=== PATIENT | male | born 1965 | race African-American/Black ===

== ENCOUNTER 2020-10-11 08:03 | Emergency (ER) | payer SELFPAY ==
[~2020-10-11] VITALS: Ht 175.3 cm; Wt 110.0 kg
[~2020-10-11 08:03] MED LIST: INSU100I17 SQ; Insulin Detemir SQ; Lisinopril PO
--- NOTE | 2020-10-11 09:06 | RAD ---
EXAM: AP View of the chest DATE: 10/11/2020 8:57 AM INDICATION: Reason: chest pain, right arm pain / Spl. Instructions: / History: COMPARISON: No Prior FINDINGS: The heart is not enlarged. Mediastinal and hilar contours are normal. Mild Patchy opacities right lung base likely atelectasis. No pleural effusion or pneumothorax. IMPRESSION: Mild Patchy opacities right lung base likely atelectasis. Electronically signed by: Atul Mayfield MD (10/11/2020 9:04 AM) [id number]
[2020-10-11 09:44] LABS: BASO # 0.1 x10^3/uL (0.0-0.2); BASO % 1 % (0-3); EOS # 0.3 x10^3/uL (0.0-0.7); EOS % 5 % (0-3); HEMATOCRIT 37.9 % (39.0-53.0); HEMOGLOBIN 12.5 g/dL (13.0-17.5); LYMPH # 2.2 x10^3/uL (1.0-4.8); LYMPH % 38 % (24-48); MEAN CORPUSCULAR HEMOGLOBIN 26 pg (25-35); MEAN CORPUSCULAR HGB CONC 33 g/dL (31-37); MEAN CORPUSCULAR VOLUME 78 fL (79-100); MONO # 0.5 x10^3/uL (0.0-1.1); MONO % 9 % (0-9); NEUT # 2.8 x10^3/uL (1.8-7.7); NEUT % 48 % (31-73); PLATELET COUNT 215 x10^3/uL (140-400); RED BLOOD COUNT 4.89 x10^6/uL (4.30-5.70); WHITE BLOOD COUNT 5.8 x10^3/uL (4.0-11.0)
[2020-10-11] MEDS ORDERED: KETOROLAC 30 MG/ML VIAL. IVP ONE (09:45)
[2020-10-11] MEDS ORDERED: CONTRAST GIVEN. MC PRN (09:45)
[2020-10-11] MEDS ORDERED: IOHEXOL 350 MG/ML 100 ML VIAL. IV ONE (09:45)
[2020-10-11 09:49] LABS: CALCIUM 8.9 mg/dL (8.5-10.1); CREATININE 1.4 mg/dL (0.7-1.3); GFR 64.4; POTASSIUM 5.1 mmol/L (3.5-5.1)
[2020-10-11 09:56] LABS: ALBUMIN 4.1 g/dL (3.4-5.0); ALBUMIN/GLOBULIN RATIO 1.2 (1.0-1.7); TOTAL BILIRUBIN 0.2 mg/dL (0.2-1.0); TOTAL PROTEIN 7.6 g/dL (6.4-8.2)
--- NOTE | 2020-10-11 10:23 | RAD ---
EXAM: CT angiography of the chest with intravenous contrast. HISTORY: Shortness of breath. Chest pain. TECHNIQUE: Computed tomographic images of the chest were obtained following the administration of int ravenous contrast according to angiography protocol. Multiplanar reformatting was performed and three dimensional maximum intensity projection images were obtained. *One or more of the following individualized dose reduction techniques were utilized for this examina tion: 1. Automated exposure control. 2. Adjustment of the mA and/or kV according to patient size. 3. Use of iterative reconstruction technique. COMPARISON: Abdomen and pelvis CT dated 03/31/2012. FINDINGS: There is no evidence of pulmonary embolism. The heart is upper normal in size. The aorta is normal in caliber. There is a common origin of the innominate and left common carotid artery, a norm al aortic arch branching variant. No pathologically enlarged lymph node is seen. There are calcified mediastinal and hilar granulomas. There is no pneumothorax or pleural effusion. There are few calcifi ed granulomas within both lungs. There is a cluster of nodules within the superior lateral left lower lobe measuring up to 7 mm. There is calcification associated with several these nodules. There is no acute finding involving the visualized upper abdomen. There is a 1.4 cm benign cyst within the later al mid zone of the left kidney, stable compared to a study performed 03/31/2012. Follow-up isn't routi maximiliano performed for simple cysts. There are splenic granulomas. There is no suspicious osseous lesion. There is no acute osseous finding. IMPRESSION: 1. No evidence of pulmonary embolism. 2. Cluster of partially calcified nodules within the lateral left lower lobe, likely postinfectious i n etiology. There are additional calcified pulmonary, mediastinal and hilar granulomas. Follow-up can be performed in one year to confirm stability of a few tiny nodules which are not clearly calcified. Electronically signed by: Aleah Cantu MD (10/11/2020 10:21 AM) [id number]
[2020-10-11] MEDS ORDERED: METH-561 PO (10:46)
--- NOTE | 2020-10-11 10:48 | ED.ADGEN ---
Past Medical History Past Medical History: Diabetes-Type II, Hypertension Past Surgical History: No Surgical History Smoking Status: Never Smoker Alcohol Use: None Drug Use: None General Adult EDM: Chief Complaint: CHEST PAIN HPI: HPI: Patient is a 52-year-old male who presents to the emergency room complaining of right-sided chest pain that radiates into his right arm and sometimes the left arm for the last several months. He states he has the pain all the time. He does not get better or worse. He has tried to take ibuprofen at home without any relief. He states he intermittently gets some coughing and feels like his chest is tight. He states that onset he does not believe he was ill. He has never had anything like this previously. Review of Systems: Review of Systems: Complete ROS is negative unless otherwise documented in HPI Current Medications: Current Medications Medications (Trade) Dose Ordered Sig/Erika Start Time Stop Time Status Last Admin Dose Admin Info (CONTRAST GIVEN -- Rx MONITORING) 1 each PRN DAILY PRN 10/11/20 09:45 10/13/20 09:44 Iohexol (Omnipaque 350 Mg/ml) 95 ml 1X ONCE 10/11/20 09:45 10/11/20 09:46 DC 10/11/20 09:58 95 ML Ketorolac Tromethamine (Toradol 30mg Vial) 30 mg 1X ONCE 10/11/20 09:45 10/11/20 09:46 DC 10/11/20 09:37 30 MG Allergies: Allergies: Allergies Coded Allergies Type Severity Reaction Last Updated Verified No Known Drug Allergies 04/09/14 No Physical Exam: PE: General: Awake, alert, NAD. Well Nourished, well hydrated. Cooperative HEENT: Atraumatic, EOMI, PERRL, airway patent, moist oral mucosa Neck: Supple, trachea midline Respiratory: CTA bilaterally, normal effort, no wheezing/crackles CV: RRR, no murmur, cap refill <2 GI: Soft, nondistended, nontender, no masses MSK: No obvious deformities Skin: Warm, dry, intact Neuro: A&O x3, speech NL, sensory and motor grossly intact, no focal deficits Psych: Normal affect, normal mood, not suicidal or homicidal Current Patient Data: Labs: Laboratory Tests Test 10/11/20 08:15 10/11/20 08:16 White Blood Count 5.8 x10^3/uL (4.0-11.0) Red Blood Count 4.89 x10^6/uL (4.30-5.70) Hemoglobin 12.5 g/dL (13.0-17.5) L Hematocrit 37.9 % (39.0-53.0) L Mean Corpuscular Volume 78 fL (79-100) L Mean Corpuscular Hemoglobin 26 pg (25-35) Mean Corpuscular Hemoglobin Concent 33 g/dL (31-37) Red Cell Distribution Width 16.0 % (11.5-14.5) H Platelet Count 215 x10^3/uL (140-400) Neutrophils (%) (Auto) 48 % (31-73) Lymphocytes (%) (Auto) 38 % (24-48) Monocytes (%) (Auto) 9 % (0-9) Eosinophils (%) (Auto) 5 % (0-3) H Basophils (%) (Auto) 1 % (0-3) Neutrophils # (Auto) 2.8 x10^3/uL (1.8-7.7) Lymphocytes # (Auto) 2.2 x10^3/uL (1.0-4.8) Monocytes # (Auto) 0.5 x10^3/uL (0.0-1.1) Eosinophils # (Auto) 0.3 x10^3/uL (0.0-0.7) Basophils # (Auto) 0.1 x10^3/uL (0.0-0.2) Sodium Level 138 mmol/L (136-145) Potassium Level 5.1 mmol/L (3.5-5.1) Chloride Level 102 mmol/L (98-107) Carbon Dioxide Level 28 mmol/L (21-32) Anion Gap 8 (6-14) Blood Urea Nitrogen 22 mg/dL (8-26) Creatinine 1.4 mg/dL (0.7-1.3) H Estimated GFR (Cockcroft-Gault) 64.4 BUN/Creatinine Ratio 16 (6-20) Glucose Level 235 mg/dL (70-99) H Calcium Level 8.9 mg/dL (8.5-10.1) Total Bilirubin 0.2 mg/dL (0.2-1.0) Aspartate Amino Transferase (AST) 24 U/L (15-37) Alanine Aminotransferase (ALT) 36 U/L (16-63) Alkaline Phosphatase 98 U/L (46-116) Troponin I Quantitative < 0.017 ng/mL (0.000-0.055) SX-Scj-G-Type Natriuretic Peptide 19 pg/mL (0-124) Total Protein 7.6 g/dL (6.4-8.2) Albumin 4.1 g/dL (3.4-5.0) Albumin/Globulin Ratio 1.2 (1.0-1.7) Glucose (Fingerstick) 238 mg/dL (70-99) H Laboratory Tests 10/11/20 08:15 Laboratory Tests 10/11/20 08:15 Vital Signs: Vital Signs Date Time Temp Pulse Resp B/P (MAP) Pulse Ox O2 Delivery O2 Flow Rate FiO2 10/11/20 09:10 34 18 139/84 (102) 97 10/11/20 08:11 98.1 Room Air 98.1 EKG: EKG: [] Heart Score: C/O Chest Pain: Yes HEART Score for Chest Pain: HEART Score for Chest Pain Response (Comments) Value History Slighlty/Non-Suspicious 0 ECG Normal 0 Age >45 - < 65 1 Risk Factors >3 Risk Factors or Hx CAD 2 Troponin < Normal Limit 0 Total 3 Risk Factors: Risk Factors: DM, Current or recent (<one month) smoker, HTN, HLP, family history of CAD, obesity. Risk Scores: Score 0 - 3: 2.5% MACE over next 6 weeks - Discharge Home Score 4 - 6: 20.3% MACE over next 6 weeks - Admit for Clinical Observation Score 7 - 10: 72.7% MACE over next 6 weeks - Early Invasive Strategies Radiology/Procedures: Radiology/Procedures: [] Course & Med Decision Making: Course & Med Decision Making Pertinent Labs and Imaging studies reviewed. (See chart for details) Patient is a 54-year-old male who presents to the emergency room with atypical constant chest pain for the last 3 months. Work-up was ordered including CBC, CMP, troponin, BMP, chest x-ray, CT angio of the chest. Patient appears to have some nodules but otherwise has a normal work-up. Will refer him to pulmonology. Patient's test results and vitals while in the ED were fully reviewed and discussed with the patient. Patient is stable and at this time does not need admission to the hospital. We have discussed strict return precautions and the importance of following up with their Primary Care Physician. Patient stated understanding and was given an opportunity to ask any questions. Patient is in agreement with plan. Dragon Disclaimer: Dragon Disclaimer: This electronic medical record was generated, in whole or in part, using a voice recognition dictation system. Departure Departure Impression: Primary Impression: Chest pain Disposition: HOME / SELF CARE / HOMELESS Condition: STABLE Referrals: NO PCP (PCP) ZAN HICKS MD Patient Instructions: Chest Pain (Nonspecific), Shortness of Breath Scripts Methocarbamol (METHOCARBAMOL) 500 Mg Tablet 500 MG PO QID PRN for MUSCLE PAIN for 5 Days, #20 TAB Prov: CLINT GARCIA MD 10/11/20 CLINT GARCIA MD Oct 11, 2020 10:48
--- NOTE | 2020-10-11 11:35 | EKG ---
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
[2020-10-11 12:02] VITALS: BP 148/63
== END 2020-10-11 12:02 | disposition home or self-care (01) ==
LOC: ER 08:03
DX: R07.89 Other chest pain (principal); R05 Cough; M79.601 Pain in right arm; M79.602 Pain in left arm; E11.9 Type 2 diabetes mellitus without complications; I10 Essential (primary) hypertension
CPT/HCPCS: 36415; 71045; 71275; 80053; 82962; 83880; 84484; 85025; 93005; 96374; 99285; J1885; Q9967